=== PATIENT | female | born 1960 ===

== ENCOUNTER 2018-06-14 09:33 | Outpatient (CLI) | payer BC | END 2018-06-14 09:34 | disposition home or self-care (01) | LOC: RAD 09:33 | DX: Z12.31 Encounter for screening mammogram for malignant neoplasm of breast (principal) ==

== ENCOUNTER 2018-10-09 13:49 | Outpatient (CLI) | payer BC | END 2018-10-09 13:50 | disposition home or self-care (01) | LOC: RAD 13:49 ==